=== PATIENT | female | born 1930 | race Caucasian/White ===

== ENCOUNTER 2017-07-28 09:11 | Observation (INO) | payer OTHER, MEDICAID, MEDICARE ==
[2017-07-28] MEDS: AMLODIPINE 5 MG TAB PO
[2017-07-28 09:57] LABS: ADD MAN DIFF? NO
[2017-07-28 09:59] LABS: BASOPHILS % 0.5 % (0.0-2.0); EOSINOPHILS # 0.4 10^3/ul (0.0-0.5); EOSINOPHILS % 6.3 % (0.0-7.0); HEMATOCRIT 35.1 % (37.0-47.0); HEMOGLOBIN 11.4 g/dl (12.0-16.0); LYMPHOCYTES # 1.6 10^3/ul (0.8-2.9); LYMPHOCYTES % 28.3 % (15.0-51.0); MEAN CORPUSCULAR HEMOGLOBIN 31.1 pg (29.0-33.0); MEAN CORPUSCULAR HGB CONC 32.5 g/dl (32.0-37.0); MEAN CORPUSCULAR VOLUME 95.9 fl (82.0-101.0); MEAN PLATELET VOLUME 9.4 fl (7.4-10.4); MONOCYTE # 0.5 10^3/ul (0.3-0.9); MONOCYTES % 9.3 % (0.0-11.0); NEUTROPHIL # 3.1 10^3/ul (1.6-7.5); NEUTROPHILS % 55.1 % (39.0-77.0); PLATELET COUNT 214 10^3/UL (140-415); RED BLOOD COUNT 3.66 10^6/ul (4.20-5.40)
[2017-07-28 09:59] LABS: WHITE BLOOD COUNT 5.7 10^3/ul (4.8-10.8)
[2017-07-28 10:17] LABS: ANION GAP 15 (8-16); BLOOD UREA NITROGEN 18 mg/dl (7-20); CALCIUM 9.3 mg/dl (8.4-10.2); CARBON DIOXIDE 27 mmol/L (21-31); CHLORIDE 110 mmol/L (97-110); CREATININE 0.88 mg/dl (0.44-1.00); GLUCOSE 126 mg/dl (70-220); POTASSIUM 4.2 mmol/L (3.5-5.1); SODIUM 148 mmol/L (135-144)
[2017-07-28] MEDS: ASPIRIN 81 MG TAB PO (10:22)
[2017-07-28 10:34] LABS: TROPONIN-I < 0.012 ng/ml (0.000-0.120)
[2017-07-28 12:17] LABS: D-DIMER 966.04 ng/ml (<460)
[2017-07-28 12:26] LABS: B-TYPE NATRIURETIC PEPTIDE 912 PG/ML (0-450)
[2017-07-28] MEDS ORDERED: NACL 0.9% 3 ML SYG IV (12:30)
[2017-07-28] MEDS ORDERED: DOCUSATE SODIUM 100 MG CAP PO (12:30)
[2017-07-28] MEDS ORDERED: morphine 2 MG INJ IV (12:30)
[2017-07-28] MEDS ORDERED: BISACODYL 10 MG SUPP PR (12:30)
[2017-07-28] MEDS ORDERED: NITROGLYCERIN (SL) 0.4 MG TAB SL (12:30)
[2017-07-28] MEDS ORDERED: AMLODIPINE 5 MG TAB PO (12:30)
[2017-07-28] MEDS ORDERED: ONDANSETRON 4 MG INJ IV ×2 (12:30)
[2017-07-28] MEDS ORDERED: MAGNESIUM HYDROXIDE 30ML CUP PO (12:30)
[2017-07-28] MEDS ORDERED: ACETAMINOPHEN 325 MG TAB PO (12:30)
[2017-07-28] MEDS ORDERED: ALBUTEROL/IPRATROPIUM (NEB) 3 ML AMP HHN (14:00)
[2017-07-28 14:15] LABS: FREE T4 (FREE THYROXINE) 0.57 ng/dl (0.85-1.93)
[2017-07-28] MEDS: LISINOPRIL 20 MG TAB PO (15:36)
[2017-07-28] MEDS: IOHEXOL 100 ML (16:49)
[2017-07-28] MEDS: SOD CHLORIDE 0.9% 100 ML (16:49)
[2017-07-28] MEDS: hydrALAzine 20 MG INJ IV (17:33)
[2017-07-28 18:55] LABS: CREATINE KINASE 62 IU/L (23-200)
[2017-07-28 19:09] LABS: CK INDEX 0.8; CK-MB 0.52 ng/ml (0.0-2.4)
[2017-07-28 19:10] LABS: TROPONIN-I < 0.012 ng/ml (0.000-0.120)
[2017-07-28] MEDS: ATORVASTATIN 10 MG TAB PO (21:30)
[2017-07-28] MEDS: FAMOTIDINE 20 MG TAB PO (21:30)
[2017-07-28 23:21] LABS: CREATINE KINASE 58 IU/L (23-200)
[2017-07-28 23:33] LABS: CK INDEX 0.9; CK-MB 0.51 ng/ml (0.0-2.4)
[2017-07-28 23:34] LABS: TROPONIN-I < 0.012 ng/ml (0.000-0.120)
[2017-07-29] MEDS: hydrALAzine 20 MG INJ IV
[2017-07-29 05:18] LABS: ADD MAN DIFF? NO
[2017-07-29 05:21] LABS: WHITE BLOOD COUNT 6.7 10^3/ul (4.8-10.8)
[2017-07-29 05:21] LABS: BASOPHILS % 0.6 % (0.0-2.0); EOSINOPHILS # 0.4 10^3/ul (0.0-0.5); EOSINOPHILS % 6.4 % (0.0-7.0); HEMATOCRIT 36.2 % (37.0-47.0); HEMOGLOBIN 11.6 g/dl (12.0-16.0); LYMPHOCYTES # 1.5 10^3/ul (0.8-2.9); LYMPHOCYTES % 22.2 % (15.0-51.0); MEAN CORPUSCULAR HEMOGLOBIN 30.7 pg (29.0-33.0); MEAN CORPUSCULAR VOLUME 95.8 fl (82.0-101.0); MEAN PLATELET VOLUME 9.5 fl (7.4-10.4); MONOCYTE # 0.7 10^3/ul (0.3-0.9); MONOCYTES % 9.7 % (0.0-11.0); NEUTROPHILS % 60.7 % (39.0-77.0); PLATELET COUNT 237 10^3/UL (140-415); RED BLOOD COUNT 3.78 10^6/ul (4.20-5.40); RED CELL DISTRIBUTION WIDTH 13.2 % (11.5-14.5)
[2017-07-29 05:37] LABS: ALANINE AMINOTRANSFERASE 45 IU/L (13-69); ALBUMIN 3.8 g/dl (3.3-4.9); ALBUMIN/GLOBULIN RATIO 1.18; ALKALINE PHOSPHATASE 71 IU/L (42-121); ANION GAP 14 (8-16); ASPARTATE AMINO TRANSFERASE 43 IU/L (15-46); BILIRUBIN,INDIRECT 0.3 mg/dl (0-1.1); BILIRUBIN,TOTAL 0.3 mg/dl (0.2-1.3); BLOOD UREA NITROGEN 18 mg/dl (7-20); CALCIUM 8.9 mg/dl (8.4-10.2); CARBON DIOXIDE 28 mmol/L (21-31); CHLORIDE 109 mmol/L (97-110); CHOLESTEROL 142 mg/dl (100-200); CREATININE 0.83 mg/dl (0.44-1.00); GLUCOSE 122 mg/dl (70-220); HDL CHOLESTEROL 35 mg/dl (33-92); LDL CHOLESTEROL,CALCULATED 86 mg/dl; MAGNESIUM 2.2 mg/dl (1.7-2.5); POTASSIUM 4.5 mmol/L (3.5-5.1); SODIUM 146 mmol/L (135-144); TRIGLYCERIDES 103 mg/dl (0-149)
[2017-07-29] MEDS: AMLODIPINE 5 MG TAB PO (08:19)
[2017-07-29] MEDS: LISINOPRIL 20 MG TAB PO (08:20)
[2017-07-29] MEDS: ASPIRIN 81 MG TAB PO (08:20)
[2017-07-29] MEDS: ENOXAPARIN 40 MG/0.4 ML SYG SC (08:24)
[2017-07-29] MEDS ORDERED: LISINOPRIL 20 MG TAB PO ×2 (09:00)
[2017-07-29] MEDS ORDERED: NIFEdipine (XL) 30 MG TAB PO (09:00)
[2017-07-29] MEDS: ACETAMINOPHEN 325 MG TAB PO (10:13)
== END 2017-07-29 15:04 | disposition home health service (06) ==
LOC: E/R 09:11 → MS3 12:07
DX: R07.89 Other chest pain (principal); R06.00 Dyspnea, unspecified; I10 Essential (primary) hypertension; E78.5 Hyperlipidemia, unspecified; M81.0 Age-related osteoporosis without current pathological fracture; M19.90 Unspecified osteoarthritis, unspecified site; Z72.0 Tobacco use
CPT/HCPCS: 36415; 71045; 71275; 80048; 80053; 80061; 82550; 82553; 83735; 83880; 84439; 84443; 84484; 85025; 85378; 93005; 93306; 93970; 99285-25